=== PATIENT | male | born 1985 | race Two or more races ===

== ENCOUNTER 2022-07-14 07:52 | Emergency (ER) | payer MEDICAID ==
[~2022-07-14] VITALS: Ht 182.9 cm; Wt 74.8 kg
--- NOTE | 2022-07-14 08:05 | NUR ---
BIB RA 81 FORM HOME,ETOH, STRONG ETOH BREATH
[2022-07-14] MEDS ORDERED: MULTIVITAMINS,THERAGRAN 1 UDTAB TABLET ONE (08:19)
[2022-07-14] MEDS ORDERED: THIAMINE HCL 100 MG TABLET ONE (08:19)
[2022-07-14] MEDS ORDERED: IV NS 0.9% 1,000 ML BAG IV ONE (08:30)
--- NOTE | 2022-07-14 08:35 | NUR ---
IV LINE ESTABLISHED ON LAC #20, BLOOD DRAWN AND COLLECTED BY PHLEB. PT REFUSED THIAMINE AND THERAGRAN MEDICATIONS, STATED THAT "I DON'T TRUST WHAT YOU'RE GIVING ME". EXPLAINED TO PT THAT MEDICATIONS ARE SUPPLEMENTAL VITAMINS; RISKS AND BENEFITS EXPLAINED BUT PT STILL REFUSED. PT ALERT AND ORIENTED AND INSISTS ON REFUSING TO TAKE MEDICATIONS BUT IS OK WITH IVF.
[2022-07-14] MEDS: MULTIVITAMINS,THERAGRAN 1 UDTAB TABLET PO SCH ×2 (08:40→08:44)
[2022-07-14] MEDS: THIAMINE HCL 100 MG TABLET PO ONE ×2 (08:40→08:44)
[2022-07-14 08:49] LABS: BASOPHILS % (AUTO) 0.3 % (0.0-2.0); EOSINOPHILS % (AUTO) 0.3 % (0.0-6.0); HEMATOCRIT 51 % (39-51); HEMOGLOBIN 17.2 g/dL (13.5-17.5); LYMPHOCYTES # (AUTO) 2.1 K/uL (0.8-4.8); LYMPHOCYTES % (AUTO) 27.5 % (20.0-44.0); MEAN CORPUSCULAR HGB CONC 34 g/dl (31.0-36.0); MEAN CORPUSCULAR VOLUME 91 fL (80-96); MONOCYTES # (AUTO) 0.4 K/uL (0.1-1.30); MONOCYTES % (AUTO) 4.6 % (2.0-12.0); NEUTROPHILS # (AUTO) 5.2 K/uL (1.8-8.9); NEUTROPHILS % (AUTO) 67.3 % (43.0-81.0); PLATELET COUNT (AUTO) 72 K/uL (150-450); RED BLOOD CELL COUNT(AUTO) 5.65 MIL/uL (4.5-6.0); WHITE BLOOD COUNT (AUTO) 7.8 K/uL (4.3-11.0)
[2022-07-14 08:59] LABS: CALCIUM, SERUM 7.6 mg/dL (8.5-10.1); CARBON DIOXIDE 22 mmol/L (21-32); CHLORIDE 98 mmol/L (98-107); CREATININE 0.9 mg/dL (0.6-1.3); GLUCOSE 86 mg/dL (74-106); POTASSIUM 3.5 mmol/L (3.5-5.1); SODIUM SERUM 139 mmol/L (136-145); UREA NITROGEN, BLOOD 10 mg/dL (7-18)
[2022-07-14 09:05] LABS: ALANINE AMINOTRANSFERASE 239 U/L (12-78); ALBUMIN 3.7 g/dL (3.4-5.0); ALCOHOL, BLOOD 448 mg/dL (0-0); ALKALINE PHOSPHATASE 103 U/L (46-116); ASPARTATE AMINOTRANSFERASE 430 U/L (15-37); BILIRUBIN,DIRECT 0.4 mg/dL (0.0-0.2); BILIRUBIN,TOTAL 0.9 mg/dL (0.2-1.0); TOTAL PROTEIN, SERUM 7.8 g/dL (6.4-8.2)
[2022-07-14 09:15] LABS: ACETAMINOPHEN < 10 ug/ml (10-30)
--- NOTE | 2022-07-14 11:45 | NUR ---
IV removed. Catheter intact and site benign. Pressure and 4x4 applied to site. No bleeding noted.
--- NOTE | 2022-07-14 12:22 | NUR ---
Patient discharged to home in stable condition. Written and verbal after care instructions given. Patient verbalizes understanding of instruction.
[2022-07-14 12:23] VITALS: BP 135/81
[2022-07-15 03:39] LABS: LYMPHOCYTES % (MANUAL) 30 % (16-48); MONOCYTES % (MANUAL) 7 % (0-11.0); NEUTROPHILS % (MANUAL) 63 (42-76)
[2022-07-17] MEDS ORDERED: CHLO25CA22 PO ×3 (16:42)
== END 2022-07-14 12:23 | disposition home or self-care (01) ==
LOC: ER 07:57
DX: F10.229 Alcohol dependence with intoxication, unspecified (principal); Y90.8 Blood alcohol level of 240 mg/100 ml or more
CPT/HCPCS: 99283; 96360; 85025; 80048; 80076; 85007; 36415; 80143; 80320; J7030; G0480

== ENCOUNTER 2022-07-14 20:42 | Emergency (ER) | payer MEDICAID ==
[~2022-07-14] VITALS: Ht 182.9 cm; Wt 72.6 kg
[2022-07-14 22:32] VITALS: BP 125/64
[2022-07-17] MEDS ORDERED: CHLO25CA22 PO ×3 (16:42)
== END 2022-07-15 03:37 | disposition home or self-care (01) ==
LOC: ER 20:43
DX: F10.129 Alcohol abuse with intoxication, unspecified (principal); F17.200 Nicotine dependence, unspecified, uncomplicated; Z60.2 Problems related to living alone; Y90.9 Presence of alcohol in blood, level not specified
CPT/HCPCS: 82962-TC

== ENCOUNTER 2022-07-15 04:45 | Inpatient (IN) | payer MEDICAID ==
[~2022-07-15] VITALS: Ht 182.9 cm; Wt 81.6 kg
[2022-07-15] MEDS ORDERED: ONDANSETRON HCL/PF 4 MG/2 ML VIAL ONE (05:47)
[2022-07-15] MEDS ORDERED: LORAZEPAM INJ 2 MG/ML VIAL ONE ×4 (05:47→11:28)
[2022-07-15] MEDS ORDERED: ONDANSETRON HCL/PF 4 MG/2 ML VIAL IVP ONE (06:00)
[2022-07-15] MEDS ORDERED: IV NS 0.9% 1,000 ML BAG IV ONE (06:00)
[2022-07-15] MEDS ORDERED: LORAZEPAM INJ 2 MG/ML VIAL IV ONE ×4 (06:00→11:30)
--- NOTE | 2022-07-15 06:00 | NUR ---
TO ER BED 4. [id number]. FOR ALCHOHOL WITHDRAWAL . PT IS ALERT AND ORIENTED. RR EVEN AND NON LABORED. CONNECTED TO POX AND HEART MONITOR. SEIZURE PRECAUTIONS INPLACE.
--- NOTE | 2022-07-15 06:05 | NUR ---
IV LINE ESTABLISHED, [id number]
--- NOTE | 2022-07-15 06:06 | NUR ---
BLOOD COLLECTED AND SENT TO LAB
[2022-07-15 06:41] LABS: BASOPHILS % (AUTO) 0.2 % (0.0-2.0); EOSINOPHILS % (AUTO) 0.2 % (0.0-6.0); HEMATOCRIT 47 % (39-51); HEMOGLOBIN 16.1 g/dL (13.5-17.5); LYMPHOCYTES # (AUTO) 0.8 K/uL (0.8-4.8); LYMPHOCYTES % (AUTO) 7.7 % (20.0-44.0); MEAN CORPUSCULAR HGB CONC 34 g/dl (31.0-36.0); MEAN CORPUSCULAR VOLUME 90 fL (80-96); MONOCYTES # (AUTO) 0.6 K/uL (0.1-1.30); MONOCYTES % (AUTO) 5.7 % (2.0-12.0); NEUTROPHILS # (AUTO) 8.8 K/uL (1.8-8.9); NEUTROPHILS % (AUTO) 86.2 % (43.0-81.0); PLATELET COUNT (AUTO) 59 K/uL (150-450); RED BLOOD CELL COUNT(AUTO) 5.25 MIL/uL (4.5-6.0); WHITE BLOOD COUNT (AUTO) 10.2 K/uL (4.3-11.0)
[2022-07-15 06:44] LABS: ALBUMIN 3.8 g/dL (3.4-5.0); BILIRUBIN,DIRECT 0.5 mg/dL (0.0-0.2); BILIRUBIN,TOTAL 1.3 mg/dL (0.2-1.0); CALCIUM, SERUM 8.4 mg/dL (8.5-10.1); CREATININE 0.7 mg/dL (0.6-1.3); POTASSIUM 3.3 mmol/L (3.5-5.1); TOTAL PROTEIN, SERUM 7.7 g/dL (6.4-8.2)
--- NOTE | 2022-07-15 08:20 | NUR ---
Pt updated with plan of care. Umm/danielle. Dr Bautista notified- additional orders
--- NOTE | 2022-07-15 08:29 | NUR ---
MOVE SHEET SUBMITTED.
[2022-07-15] MEDS ORDERED: IV LR 1000 ML 1,000 ML IV ONE ×2 (08:30→10:30)
--- NOTE | 2022-07-15 09:04 | NUR ---
Dozing, easily awakened. Appears more comfortable. Awaiting room assignment
--- NOTE | 2022-07-15 09:45 | NUR ---
[facility] [place] [phone]
[2022-07-15 10:03] LABS: LYMPHOCYTES % (MANUAL) 8 % (16-48); NEUTROPHILS % (MANUAL) 87 (42-76)
[2022-07-15 10:04] LABS: BASOPHILS % (MANUAL) 0 % (0.0-2.0); EOSINOPHILS % (MANUAL) 1 % (0-4); MONOCYTES % (MANUAL) 4 % (0-11.0)
--- NOTE | 2022-07-15 10:20 | NUR ---
Covid Swab done-sent to lab.
--- NOTE | 2022-07-15 11:33 | NUR ---
RECEIVED FULL REPORT FOR THE PATIENT FROM NURSE PRIETO RN BEING ADMITTED TO TELE UNIT.
--- NOTE | 2022-07-15 11:45 | NUR ---
Report given to ZANE Bee. Oxygen applied for comfort and to keep sats >94. Transfer to tele floor by ann. NO obvious distress/no acute changes
--- NOTE | 2022-07-15 11:51 | NUR ---
BED 116-2
--- NOTE | 2022-07-15 11:58 | NUR ---
TELE ADMISSION NOTES: RECEIVED A 37 YEAR OLD MALE FROM ED ACCOMPANIED BY TWO NURSES VIA GURNEY. PATIENT IS ALERT, ORIENTED X3. NO RESPIRATORY DISTRESS NOTED. ON RA WITH OXYGEN SATURATION OF 94%. PATIENT NOTED TO BE HAVING TREMORS AND ASSISTED TO BED. PATIENT WAS PLACED ON TELEMONITOR WITH HR OF 119 PER CODING COMPLIANCE AUDITOR. NO C/O CHEST PAIN OR DISCOMFORT AT THIS TIME. IV ACCESS ON LEFT ANTECUBITAL AREA, PATENT, FLUSHES WELL. ALL SAFETY MEASURES IN PLACE. BED LOCKED AND IN LOWEST POSITION WITH BED ALARM ON. CALL LIGHT PLACED WITHIN REACH AND INSTRUCTED PATIENT TO PLEASE CALL FOR ASSISTANCE WHEN NEEDED AND TO TRY NOT TO AMBULATE BY HIMSELF. PATIENT AGREED AND UNDERSTOOD. NO NAUSEA/VOMITING NOTED AT THIS TIME. BODY CHECK DONE AND BELONGINGS LIST WAS PLACED IN THE CHART. WILL CONTINUE TO MONITOR PATIENT THROUGHOUT SHIFT. V/S FOLLOWS: BP 145/85, RESPIRATION RATE 18, TEMP 99.6.
[2022-07-15 12:00] VITALS: BP 145/85
[2022-07-15] MEDS ORDERED: ZOLPIDEM TARTRATE 5 MG TABLET PO PRN (13:00)
[2022-07-15] MEDS ORDERED: ONDANSETRON HCL/PF 4 MG/2 ML VIAL IVP PRN (13:00)
[2022-07-15] MEDS ORDERED: Z GUARD REMEDY 4 OZ OINT TP PRN (13:00)
[2022-07-15] MEDS ORDERED: MAGNESIUM HYDROXIDE 30 ML UDC PO PRN (13:00)
[2022-07-15] MEDS ORDERED: MAG HYDROX/AL HYDROX/SIMETH 30 ML UDC PO PRN (13:00)
[2022-07-15] MEDS: FOLIC ACID 1 MG TABLET PO SCH (13:15)
[2022-07-15] MEDS: THIAMINE HCL 100 MG TABLET PO SCH (13:18)
[2022-07-15] MEDS: MULTIVITAMINS,THERAGRAN 1 UDTAB TABLET PO SCH (13:18)
[2022-07-15] MEDS: IV NS 0.9% 1,000 ML IV PRN (13:19)
[2022-07-15] MEDS ORDERED: POTASSIUM CHLORIDE 20 MEQ TAB.PRT.SR PO ONE (13:30)
[2022-07-15] MEDS: LORAZEPAM 1 MG TABLET PO PRN (15:41)
[2022-07-15] MEDS: ACETAMINOPHEN 325 MG TABLET PO PRN ×2 (15:41→15:48)
[2022-07-15 16:00] VITALS: BP 131/79
--- NOTE | 2022-07-15 18:33 | NUR ---
PATIENT NOTED TO VIOLETA NO URINE OUTOUT SINCE HE WAS ADMITTED ABOUT 6 HOURS AGO. NO ABDOMINAL DISTENTION NOTED, NO ABDOMIANL PAINUPON PALPATION. DR. MORELAND Addendum: 07/15/22 at 1902 by MARK DELGADO RN CORRECTION ON NOTE ABOVE. NO PAIN UPON PALPATION. DR. MORELAND NOTIFIED WITH AN ORDER FOR YOUNG CATHETER INSERTION. ORDER NOTED AND CARRIED OUT.
--- NOTE | 2022-07-15 18:45 | NUR ---
GATHERED SUPPLIES AND EXPLAINED THE PROCEDURE TO THE PATIENT BUT PATIENT DECLINED AT THIS TIME
[2022-07-15] MEDS: LORAZEPAM INJ 2 MG/ML VIAL IV PRN (18:55)
--- NOTE | 2022-07-15 18:55 | NUR ---
OFFERED TO HAVE HIS YOUNG CATHETER GIVEN TO HIM BUT PATIENT SAID THAT HE WANTS HIS ATIVAN FIRST TO CALM HIM DOWN BEFORE INSERTION. MED GIVEN TO THE PATIENT.
--- NOTE | 2022-07-15 19:03 | NUR ---
TELE CLOSING NOTES: PATIENT IN BED, WAKE, ALERT, ORIENTED X 4. NO PERIODS OF ANXIETY NOTED AT THIS TIME BUT WOULD STILL WANT TO WAIT A LITTLE BIT FOR F/C INSERTION. NO RESPIRATORY DISTRESS NOTED THROUGHOUT SHIFT. ON SR WITH HR OF 96 ON TELE MONITOR. PATIENT STILL NOTED WITH MILD TREMORS. IV ACCESS ON LEFT AC RUNNING WITH NS @ 75 ML/HR, IV SITE PATENT, NO S/S INFILTRATION NOTED. ALL SAFETY MEASURES IMPLEMENTED. BED LOCKED AND IN LOWEST POSITION. SR UP X 2. CALL LIGHT WITHIN REACH. WILL ENDORSE TO NEXT SHIFT NURSE FOR F/C INSERTION ORDERED BY .
--- NOTE | 2022-07-15 19:40 | NUR ---
INFORMATION SYSTEMS ARCHITECT OPENING NOTES: RECEIVED PATIENT AWAKE IN BED, BE DIN LOW POSITION CALL LIGHS WITHIN REACH, NO COMPLAIN OF PAIN AND DISCOMFORT AT THIS TIME, ON ROOM AIR SATURATING WELL, PATIENT ON TELE MONITOR- SR-87, NO SYMPTOMS WAS OBSERVED, IV LINE AT LAC#20 WITH ONGOING NSS@75 ML/HR INFUSING WELL, PATIENT KEPT CLEAN AND DRY ALL NEEDS MET WILL CONTINUE TO MONITOR.
[2022-07-15 20:00] VITALS: BP 112/79
--- NOTE | 2022-07-15 21:16 | NUR ---
RN NOTES: FOLYE CATHETER INSERTION NOT DONE, PATIENT URINATE 900CC VIA URINAL, DID BLADDER SCAN NO URINE RETENTION WILL CONTINUE TO MONITOR.
[2022-07-16] VITALS: BP 112/79
[2022-07-16] MEDS: IV NS 0.9% 1,000 ML IV PRN (02:12)
[2022-07-16 04:03] VITALS: BP 116/78
[2022-07-16] MEDS: LORAZEPAM INJ 2 MG/ML VIAL IV PRN ×2 (04:57→11:54)
[2022-07-16 06:11] LABS: BASOPHILS % (AUTO) 0.2 % (0.0-2.0); HEMATOCRIT 41 % (39-51); HEMOGLOBIN 13.6 g/dL (13.5-17.5); LYMPHOCYTES # (AUTO) 1.2 K/uL (0.8-4.8); LYMPHOCYTES % (AUTO) 15.2 % (20.0-44.0); MEAN CORPUSCULAR HGB CONC 33 g/dl (31.0-36.0); MEAN CORPUSCULAR VOLUME 92 fL (80-96); MONOCYTES # (AUTO) 0.5 K/uL (0.1-1.30); MONOCYTES % (AUTO) 6.2 % (2.0-12.0); NEUTROPHILS % (AUTO) 77.4 % (43.0-81.0); RED BLOOD CELL COUNT(AUTO) 4.45 MIL/uL (4.5-6.0); WHITE BLOOD COUNT (AUTO) 7.7 K/uL (4.3-11.0)
[2022-07-16 06:20] LABS: PLATELET COUNT (AUTO) 41 K/uL (150-450)
--- NOTE | 2022-07-16 06:25 | NUR ---
RN NOTES: RECEIVED A CRITICAL LABS OF PLATELET AT 41, PREVIOUS WAS- 59 NO BLEEDING WAS OBSERVED, NOTIFY CARD CLOTHIER KARI- NO NEW ORDER
--- NOTE | 2022-07-16 06:34 | NUR ---
DARIO RN CLOSING NOTES: PATIENT AWAKE IN BED, BED IN LOW POSITION CALL LIGHTS WITHIN REACH, NO COMPLAIN OF PAIN AND DISCOMFORT AT THIS TIE, ON ROOM AIR SATURATING WELL, ON TELE MONITOR- SR-83, IV LINE AT LAC#20 WITH ONGONG 0.9NSS@75ML/HR INFUSING WELL, PATIENT IS A/OX4 ABLE TO MAKE NEEDS KNWON, NO BLEEDING WAS OBSERVED , KEPT CLEAN AND DRY ALL NEEDS MET ENDORSE TO INCOMING SHIFT.
[2022-07-16 06:55] LABS: CREATININE 0.8 mg/dL (0.6-1.3); MAGNESIUM 1.4 mg/dL (1.8-2.4); PHOSPHORUS 1.6 mg/dL (2.5-4.9); POTASSIUM 3.2 mmol/L (3.5-5.1)
--- NOTE | 2022-07-16 07:30 | NUR ---
RN Opening Note Patient AOx4 able to express his concerns. Patient states no complaints, no issues, no signs of respiratory distress or discomfort. All safety precautions taken, oriented pt to unit and the use of the call light. Discussed plan of care, pt verbalized agreement. All safety precautions taken, call light and table within reach, bed at lowest position.
[2022-07-16 08:00] VITALS: BP 95/52
[2022-07-16] MEDS: PANTOPRAZOLE 40 MG TABLET.DR PO SCH (08:02)
[2022-07-16] MEDS: LORAZEPAM 1 MG TABLET PO PRN (08:02)
[2022-07-16] MEDS: THIAMINE HCL 100 MG TABLET PO SCH (08:05)
[2022-07-16] MEDS: MULTIVITAMINS,THERAGRAN 1 UDTAB TABLET PO SCH (08:05)
[2022-07-16] MEDS: FOLIC ACID 1 MG TABLET PO SCH (08:05)
[2022-07-16] MEDS: NICOTINE PATCH (14MG) 14 MG PATCH.TD24 TD SCH (08:05)
[2022-07-16] MEDS ORDERED: MAGNESIUM OXIDE 400 MG TABLET PO ONE (09:00)
[2022-07-16] MEDS: POTASSIUM CHLORIDE 20 MEQ TAB.PRT.SR PO SCH ×2 (09:50→11:07)
[2022-07-16 10:45] LABS: BASOPHILS % (MANUAL) 0 % (0.0-2.0); EOSINOPHILS % (MANUAL) 1 % (0-4); LYMPHOCYTES % (MANUAL) 12 % (16-48); MONOCYTES % (MANUAL) 7 % (0-11.0); NEUTROPHILS % (MANUAL) 80 (42-76)
[2022-07-16 12:00] VITALS: BP 129/78
[2022-07-16] MEDS ORDERED: K PHOS NEUTRAL 250 MG TABLET PO ONE (12:00)
[2022-07-16] MEDS: CHLORDIAZEPOXIDE HCL 25 MG CAPSULE PO SCH ×4 (12:35→17:13)
--- NOTE | 2022-07-16 13:05 | NUR ---
Refused Librium PAtient refused Librium, goggled information and states he does not want to take it. States he is skeptical about medications and does not want to take it, does not feel he needs it. Educated pt, spent over 10 minutes, pt cont to refuse.
[2022-07-16] MEDS ORDERED: LORAZEPAM INJ 2 MG/ML VIAL IV STA (13:54)
--- NOTE | 2022-07-16 13:56 | NUR ---
television news producer note noted on tele monitor st 145-160 per Fabien balbuena give Ativan 1 mg ivp now , order carried out
[2022-07-16 16:00] VITALS: BP 116/78
--- NOTE | 2022-07-16 18:20 | NUR ---
RN Closing Note Patient AOx4 able to express his own concerns. No signs of respiratory distress or discomfort, no signs of IV infiltration. Patient has been sleeping through out shift, no incidents. Provided care as needed and administered medications as prescribed. Patient remained safe throughout shift, no incidents to report. All safety precautions taken All safety precautions taken, call light and table within reach, bed at lowest position.
--- NOTE | 2022-07-16 19:20 | NUR ---
HYDRAULIC RIVETER OPENING NOTES: RECEIVED PATIENT IN BED, SLEEPING. EASILY BEING AROUSED. PATIENT IS ON RA, TOLERATED WELL; NO S/S OF SOB OR DISTRESS. IV ACCESS IS AT HIS L AC, RUNNING NS @100 ML / HOUR. IV SITE IS PATENT AND INTACT. PATIENT IS ON EXTERNAL LOG INSPECTOR, ON THE MONITOR, HIS HEART RHYTHM IS ST BETWEEN 100S TO 130S. SAFETY MEASURES ARE IN PLACE: BED IN LOWEST AND LOCKED POSITION; SIDE RAILS UP X 2 ; CALL LIGHT AND TABLE ARE WITHIN REACH. WILL CONTINUE MONITOR THE PATIENT AND PROVIDE THE CARE PATIENT NEEDS.
[2022-07-16 20:00] VITALS: BP 126/71
[2022-07-17] VITALS: BP 127/84
[2022-07-17] MEDS: LORAZEPAM INJ 2 MG/ML VIAL IV PRN ×3 (03:44→11:01)
[2022-07-17] MEDS: IV NS 0.9% 1,000 ML IV PRN (03:48)
--- NOTE | 2022-07-17 03:50 | NUR ---
MIXED CROP AND LIVESTOCK FARM WORKER NOTE PATIENT WOKE UP AND HIS HEART RATE REACHES 140S. ACCESSED THE PATIENT, PATIENT STATED HE WAS FEELING ANXIOUS, AND NEED THE ATIVAN. PRN MEDICATION ATIVAN GIVEN PER MD ORDER.
[2022-07-17 04:00] VITALS: BP 131/89
[2022-07-17 06:22] LABS: BASOPHILS % (AUTO) 0.3 % (0.0-2.0); EOSINOPHILS % (AUTO) 1.1 % (0.0-6.0); HEMATOCRIT 45 % (39-51); HEMOGLOBIN 15.3 g/dL (13.5-17.5); LYMPHOCYTES # (AUTO) 1.3 K/uL (0.8-4.8); LYMPHOCYTES % (AUTO) 13.8 % (20.0-44.0); MEAN CORPUSCULAR HGB CONC 34 g/dl (31.0-36.0); MEAN CORPUSCULAR VOLUME 91 fL (80-96); MONOCYTES # (AUTO) 0.5 K/uL (0.1-1.30); MONOCYTES % (AUTO) 5.1 % (2.0-12.0); NEUTROPHILS # (AUTO) 7.7 K/uL (1.8-8.9); NEUTROPHILS % (AUTO) 79.7 % (43.0-81.0); RED BLOOD CELL COUNT(AUTO) 4.97 MIL/uL (4.5-6.0); WHITE BLOOD COUNT (AUTO) 9.6 K/uL (4.3-11.0)
[2022-07-17 06:30] LABS: PLATELET COUNT (AUTO) 44 K/uL (150-450)
--- NOTE | 2022-07-17 06:30 | NUR ---
APPLICATION TECHNICIAN CRITICAL LAB CALL NOTE RECEIVED PHONE CALL FROM THE LAB AND BEING [id number] PATIENT'S PLT IS 44 FOR TODAY'S AM LAB DRAW. YESTERDAY, IT WAS 41. PATIENT'S PLT LAB VALUE IS TRENDING UP TOWARDS TO THE RIGHT DIRECTION. NO NEED TO CALL THE MD. CHARGE NURSE, ELLEN, NOTIFIED.
[2022-07-17 06:43] LABS: ALBUMIN 2.9 g/dL (3.4-5.0); BILIRUBIN,DIRECT 0.4 mg/dL (0.0-0.2); BILIRUBIN,TOTAL 1.3 mg/dL (0.2-1.0); CALCIUM, SERUM 8.3 mg/dL (8.5-10.1); CREATININE 0.7 mg/dL (0.6-1.3); MAGNESIUM 1.5 mg/dL (1.8-2.4); PHOSPHORUS 2.3 mg/dL (2.5-4.9); POTASSIUM 3.2 mmol/L (3.5-5.1); TOTAL PROTEIN, SERUM 6.7 g/dL (6.4-8.2)
[2022-07-17] MEDS: PANTOPRAZOLE 40 MG TABLET.DR PO SCH (07:30)
--- NOTE | 2022-07-17 07:30 | NUR ---
RN Opening Note Patient AOx4 able to express his concerns. Patient states he is comfortable, no complains. No signs of distress or discomfort, IV with no signs of infiltration. Patient educated on importance of using relaxation techniques to help bring his heart rate down. Patient states he is stressed since his mother is driving to see him from [place]. All safety precautions taken, call light and table within reach, bed at lowest position. Will continue to monitor throughout shift.
--- NOTE | 2022-07-17 07:39 | NUR ---
DIGITAL TRAFFIC COORDINATOR CLOSING NOTES: PATIENT IS IN BED, SLEEPING. EASILY BEING AROUSED. PATIENT IS ON RA, TOLERATED WELL; NO S/S OF SOB OR DISTRESS. IV ACCESS IS AT HIS L AC, RUNNING NS @100 ML / HOUR. IV SITE IS PATENT AND INTACT. PATIENT IS ON EXTERNAL CONSULTING IT ARCHITECT, ON THE MONITOR, HIS HEART RHYTHM IS ST BETWEEN 100S TO 130S. SAFETY MEASURES ARE IN PLACE: BED IN LOWEST AND LOCKED POSITION; SIDE RAILS UP X 2 ; CALL LIGHT AND TABLE ARE WITHIN REACH. WILL ENDORSE NEXT SHIFT NURSE FOR CONTINUING PATIENT CARE.
[2022-07-17 08:00] VITALS: BP 138/100
[2022-07-17] MEDS: NICOTINE PATCH (14MG) 14 MG PATCH.TD24 TD SCH (09:14)
[2022-07-17] MEDS: CHLORDIAZEPOXIDE HCL 25 MG CAPSULE PO SCH ×3 (09:15→16:58)
[2022-07-17] MEDS: MULTIVITAMINS,THERAGRAN 1 UDTAB TABLET PO SCH (09:15)
[2022-07-17] MEDS: THIAMINE HCL 100 MG TABLET PO SCH (09:15)
[2022-07-17] MEDS: FOLIC ACID 1 MG TABLET PO SCH (09:15)
[2022-07-17] MEDS ORDERED: POTASSIUM CHLORIDE 20 MEQ TAB.PRT.SR PO ONE (11:00)
[2022-07-17 12:00] VITALS: BP 137/88
[2022-07-17] MEDS ORDERED: K PHOS NEUTRAL 250 MG TABLET PO ONE (12:00)
[2022-07-17] MEDS: Magnesium 1GM/D5W 100ML PREMIX 100 ML IV SCH ×2 (12:42→13:45)
[2022-07-17 16:00] VITALS: BP 122/74
[2022-07-17] MEDS ORDERED: CHLO25CA22 PO ×3 (16:42)
--- NOTE | 2022-07-17 19:13 | NUR ---
RN Closing Note Patient AOx4 able to express his concerns. No signs of distress or discomfort. Administed medication as ordered and provided care as needed. All safety precautions taken, call light and table within reach. Will endorse to night nurse for continuity of care.
--- NOTE | 2022-07-17 19:30 | NUR ---
DEHYDROGENATION SUPERVISOR OPENING NOTE RECEIVED PT AWAKE IN BED. A/O X4 AND ABLE TO MAKE NEEDS KNOWN. PT STABLE ON ROOM AIR. NO SOB OR S/S OF RESPIRATORY DISTRESS. BREATHING EVEN AND UNLABORED. ON EXTERNAL CHANGE ATTENDANT READING ST 122BPM. IV ACCESS L HAND 20G, INTACT AND PATENT, RUNNING NS @ 100 ML/HR. SAFETY PRECAUTIONS IN PLACE. BED IN LOWEST LOCKED POSITION, HOB ELEVATED, SIDE RAILS UP X3, AND CALL LIGHT AND TABLE WITHIN REACH. ALL NEEDS MET AT THIS TIME.
[2022-07-17 20:00] VITALS: BP 119/87
[2022-07-17 20:11] LABS: EOSINOPHILS % (MANUAL) 2 % (0-4); LYMPHOCYTES % (MANUAL) 14 % (16-48); MONOCYTES % (MANUAL) 5 % (0-11.0); NEUTROPHILS % (MANUAL) 79 (42-76)
[2022-07-18] VITALS: BP 117/80
[2022-07-18] MEDS: LORAZEPAM INJ 2 MG/ML VIAL IV PRN ×5 (02:26→19:08)
--- NOTE | 2022-07-18 02:32 | NUR ---
RN NOTE PT REQUESTED ATIVAN FOR ANXIETY. ADMINISTERED ATIVAN 1 MG IV FOR ANXIETY ORDERED. WASTED REMAINING MEDICATION WITH DAISY DEGROOT. MADE COMFORTABLE IN BED. ALL NEEDS MET AT THIS TIME.
[2022-07-18 04:00] VITALS: BP 119/78
[2022-07-18] MEDS: IV NS 0.9% 1,000 ML IV PRN ×2 (04:41→15:12)
--- NOTE | 2022-07-18 06:41 | NUR ---
CIVIL ENGINEERING ASSISTANT CLOSING NOTE PT AWAKE IN BED. A/O X4 AND ABLE TO MAKE NEEDS KNOWN. PT STABLE ON ROOM AIR. NO SOB OR S/S OF RESPIRATORY DISTRESS. BREATHING EVEN AND UNLABORED. ON EXTERNAL RESERVATIONS AND TICKETING AGENT READING ST 115 BPM. IV ACCESS L HAND 20G, INTACT AND PATENT, RUNNING NS @ 100 ML/HR. ALL DUE MEDS GIVEN ORDERED. SAFETY PRECAUTIONS IN PLACE AT ALL TIMES. BED IN LOWEST LOCKED POSITION, HOB ELEVATED, SIDE RAILS UP X3, AND CALL LIGHT AND TABLE WITHIN REACH. ALL NEEDS MET AT THIS TIME AND WILL ENDORSE TO ONCOMING NURSE FOR JEET.
[2022-07-18 06:53] LABS: BASOPHILS % (AUTO) 0.3 % (0.0-2.0); EOSINOPHILS % (AUTO) 1.2 % (0.0-6.0); HEMATOCRIT 45 % (39-51); HEMOGLOBIN 15.3 g/dL (13.5-17.5); LYMPHOCYTES # (AUTO) 1.3 K/uL (0.8-4.8); MEAN CORPUSCULAR HGB CONC 34 g/dl (31.0-36.0); MEAN CORPUSCULAR VOLUME 92 fL (80-96); MONOCYTES # (AUTO) 0.7 K/uL (0.1-1.30); MONOCYTES % (AUTO) 6.5 % (2.0-12.0); NEUTROPHILS # (AUTO) 8.1 K/uL (1.8-8.9); PLATELET COUNT (AUTO) 65 K/uL (150-450); RED BLOOD CELL COUNT(AUTO) 4.89 MIL/uL (4.5-6.0); WHITE BLOOD COUNT (AUTO) 10.2 K/uL (4.3-11.0)
[2022-07-18 07:08] LABS: CALCIUM, SERUM 8.4 mg/dL (8.5-10.1); CREATININE 0.7 mg/dL (0.6-1.3); PHOSPHORUS 3.1 mg/dL (2.5-4.9); POTASSIUM 3.3 mmol/L (3.5-5.1)
[2022-07-18] MEDS: PANTOPRAZOLE 40 MG TABLET.DR PO SCH (07:27)
[2022-07-18] MEDS ORDERED: POTASSIUM CHLORIDE 20 MEQ TAB.PRT.SR PO ONE ×2 (08:00→11:00)
[2022-07-18 08:10] VITALS: BP 138/95
[2022-07-18] MEDS: CHLORDIAZEPOXIDE HCL 25 MG CAPSULE PO SCH ×3 (08:15→16:04)
[2022-07-18] MEDS: MULTIVITAMINS,THERAGRAN 1 UDTAB TABLET PO SCH (08:15)
[2022-07-18] MEDS: THIAMINE HCL 100 MG TABLET PO SCH (08:15)
[2022-07-18] MEDS: FOLIC ACID 1 MG TABLET PO SCH (08:15)
[2022-07-18] MEDS: NICOTINE PATCH (14MG) 14 MG PATCH.TD24 TD SCH (08:28)
[2022-07-18 11:52] LABS: LYMPHOCYTES % (MANUAL) 18 % (16-48); MONOCYTES % (MANUAL) 9 % (0-11.0); NEUTROPHILS % (MANUAL) 73 (42-76)
[2022-07-18 12:00] VITALS: BP 127/87
[2022-07-18 16:01] VITALS: BP 121/89
--- NOTE | 2022-07-18 18:32 | NUR ---
TRIPE COOKER CLOSING NOTES: PATIENT IS IN BED, ALERT ORIENTED TIMES 4 .PATIENT IS ON RA, TOLERATED WELL; NO S/S OF SOB OR DISTRESS. IV ACCESS IS AT HIS L AC, RUNNING NS @100 ML / HOUR. IV SITE IS PATENT AND INTACT. PATIENT IS ON EXTERNAL WATER POLLUTION SCIENTIST, ON THE MONITOR, HIS HEART RHYTHM IS ST BETWEEN 100S TO 147 .ALL MEDICATIONS WERE ADMINISTERED , ALL NEEDS WERE MET SAFETY MEASURES ARE IN PLACE: BED IN LOWEST AND LOCKED POSITION; SIDE RAILS UP X 2 ; CALL LIGHT AND TABLE ARE WITHIN REACH. WILL ENDORSE NEXT SHIFT NURSE TO FALLOW POC
--- NOTE | 2022-07-18 19:40 | NUR ---
NANNY BABYSITTER OPENING NOTE RECEIVED PATIENT IN BED, AWAKE. PT A/O X 4, ABLE TO MAKE NEEDS KNOWN. PATIENT IS ON RA, TOLERATED RA WELL; NO S/S OF SOB OR DISTRESS NOTED. IV ACCESS IS AT LEFT AC, RUNNING NS @100 ML / HOUR. IV SITE IS PATENT AND INTACT. PATIENT IS ON EXTERNAL HAT MENDER, WITH HR ST BETWEEN 100S TO 140S. SAFETY MEASURES ARE IN PLACE: BED IN LOWEST AND LOCKED POSITION; SIDE RAILS UP X 2 ; CALL LIGHT AND TABLE ARE WITHIN REACH. WILL CONTINUE TO MONITOR PATIENT.
[2022-07-18 20:00] VITALS: BP 127/86
[2022-07-19] VITALS: BP 111/78
[2022-07-19 04:00] VITALS: BP 111/78
[2022-07-19] MEDS: LORAZEPAM INJ 2 MG/ML VIAL IV PRN ×3 (05:28→13:50)
[2022-07-19 05:44] LABS: BASOPHILS % (AUTO) 0.5 % (0.0-2.0); HEMATOCRIT 47 % (39-51); HEMOGLOBIN 15.7 g/dL (13.5-17.5); LYMPHOCYTES # (AUTO) 1.6 K/uL (0.8-4.8); LYMPHOCYTES % (AUTO) 18.1 % (20.0-44.0); MEAN CORPUSCULAR HGB CONC 33 g/dl (31.0-36.0); MEAN CORPUSCULAR VOLUME 93 fL (80-96); MONOCYTES # (AUTO) 0.7 K/uL (0.1-1.30); MONOCYTES % (AUTO) 8.4 % (2.0-12.0); NEUTROPHILS # (AUTO) 6.2 K/uL (1.8-8.9); PLATELET COUNT (AUTO) 113 K/uL (150-450); RED BLOOD CELL COUNT(AUTO) 5.09 MIL/uL (4.5-6.0); WHITE BLOOD COUNT (AUTO) 8.8 K/uL (4.3-11.0)
[2022-07-19 05:48] LABS: CALCIUM, SERUM 9.1 mg/dL (8.5-10.1); CREATININE 0.8 mg/dL (0.6-1.3)
--- NOTE | 2022-07-19 07:00 | NUR ---
KNITTED GARMENT FINISHER CLOSING NOTE PATIENT IS IN BED, ALERT ORIENTED TIMES 4 .PATIENT IS ON RA, TOLERATED WELL; NO S/S OF SOB OR DISTRESS. IV ACCESS IS AT HIS L AC, RUNNING NS @100 ML / HOUR. IV SITE IS PATENT AND INTACT. PATIENT IS ON EXTERNAL PYROMETER TEMPERATURE REGULATOR, ON THE MONITOR, HIS HEART RHYTHM IS ST BETWEEN 100S TO 140 .ALL MEDICATIONS WERE ADMINISTERED. SAFETY MEASURES ARE IN PLACE: BED IN LOWEST AND LOCKED POSITION; SIDE RAILS UP X 2 ; CALL LIGHT AND TABLE ARE WITHIN REACH. WILL ENDORSE TO NEXT SHIFT NURSE FOR JEET.
--- NOTE | 2022-07-19 07:33 | NUR ---
CONDITIONER TUMBLER OPENING NOTE RECEIVED PATIENT IN BED, AWAKE. PT A/O X 4, ABLE TO MAKE NEEDS KNOWN. PATIENT IS ON RA, TOLERATED RA WELL; NO S/S OF SOB OR DISTRESS NOTED. IV ACCESS IS AT LEFT AC, RUNNING NS @100 ML / HOUR. IV SITE IS PATENT AND INTACT. PATIENT IS ON EXTERNAL PRICING LEAD, WITH HR ST. SAFETY MEASURES ARE IN PLACE: BED IN LOWEST AND LOCKED POSITION; SIDE RAILS UP X 2 ; CALL LIGHT AND TABLE ARE WITHIN REACH.
[2022-07-19 08:00] VITALS: BP 129/97
[2022-07-19] MEDS: NICOTINE PATCH (14MG) 14 MG PATCH.TD24 TD SCH (08:04)
[2022-07-19] MEDS: CHLORDIAZEPOXIDE HCL 25 MG CAPSULE PO SCH ×3 (08:04→17:08)
[2022-07-19] MEDS: PANTOPRAZOLE 40 MG TABLET.DR PO SCH (08:04)
[2022-07-19] MEDS: MULTIVITAMINS,THERAGRAN 1 UDTAB TABLET PO SCH (08:04)
[2022-07-19] MEDS: THIAMINE HCL 100 MG TABLET PO SCH (08:05)
[2022-07-19] MEDS: FOLIC ACID 1 MG TABLET PO SCH (08:05)
[2022-07-19 12:00] VITALS: BP 128/89
[2022-07-19] MEDS: IV NS 0.9% 1,000 ML IV PRN (12:32)
[2022-07-19 16:00] VITALS: BP 127/87
--- NOTE | 2022-07-19 16:00 | NUR ---
SS CONSULT REQUESTED. SW will follow up at a later time.
[2022-07-19 17:45] LABS: EOSINOPHILS % (MANUAL) 3 % (0-4); LYMPHOCYTES % (MANUAL) 17 % (16-48); MONOCYTES % (MANUAL) 8 % (0-11.0); NEUTROPHILS % (MANUAL) 72 (42-76)
--- NOTE | 2022-07-19 18:42 | NUR ---
DOCUMENT CONTROL MANAGER CLOSING NOTE PATIENT IS IN BED, ALERT ORIENTED TIMES 4 .PATIENT IS ON RA, TOLERATED WELL; NO S/S OF SOB OR DISTRESS. IV ACCESS IS AT HIS L AC, RUNNING NS @100 ML / HOUR. IV SITE IS PATENT AND INTACT. PATIENT IS ON EXTERNAL BENZENE STILL UTILITY OPERATOR, ON THE MONITOR, HIS HEART RHYTHM IS ST BETWEEN 100S TO 140 .ALL MEDICATIONS WERE ADMINISTERED. SAFETY MEASURES ARE IN PLACE: BED IN LOWEST AND LOCKED POSITION; SIDE RAILS UP X 2 ; CALL LIGHT AND TABLE ARE WITHIN REACH. WILL ENDORSE TO NEXT SHIFT NURSE FOR JEET.
--- NOTE | 2022-07-19 19:30 | NUR ---
ASSEMBLER TUBING OPENING NOTE RECEIVED PATIENT IN BED, AWAKE A/O X 4, ABLE TO MAKE NEEDS KNOWN.ON RA ALEX WELL; NO SIGN SOB/DISTRESS NOTED,IV ACCESS ON LFA 22G WITH NS @100 ML / HOUR.NO COMPLAIN OF PAIN/DISCOMFORT AT THIS TIME,SAFETY MEASURES ARE IN PLACE: BED IN LOWEST AND LOCKED POSITION; SIDE RAILS UP X 2 ; CALL LIGHT WITHIN REACH,WILL CONTINUE TO MONITOR.
[2022-07-19 20:00] VITALS: BP 125/90
[2022-07-20] VITALS: BP 113/79
[2022-07-20 04:00] VITALS: BP 107/78
[2022-07-20] MEDS: IV NS 0.9% 1,000 ML IV PRN (05:00)
--- NOTE | 2022-07-20 06:18 | NUR ---
SHIM PLUG CUTTER CLOSING NOTE;116 PATIENT IN BED, AWAKE A/O X 4, ABLE TO MAKE NEEDS KNOWN.ON RA ALEX WELL; NO SIGN SOB/DISTRESS NOTED,IV ACCESS ON LFA 22G WITH NS @100 ML / HOUR.NO COMPLAIN OF PAIN/DISCOMFORT DURING SHIFT,DUE MEDS GIVEN ORDER,ALL NEEDS ATTENDED,SAFETY MEASURES ARE IN PLACE: BED IN LOWEST AND LOCKED POSITION; SIDE RAILS UP X 2 ; CALL LIGHT WITHIN REACH,WILL ENDORSED TO NEXT SHIFT.
--- NOTE | 2022-07-20 07:13 | NUR ---
PATIENT IS AWAKE, ALERT, ORIENTED X2, INTERMITTENT CONFUSE, NO SIGNS OF IN DISTRESS, SPO2 Addendum: 07/20/22 at 0717 by GRAND MAXIMILIANO DEGROOT PATIENT IS AWAKE, ALERT, ORIENTED X2, INTERMITTENT CONFUSE, NO SIGNS OF IN DISTRESS, SPO2 98% ON 2L 02 VIA N/C, BED IN LOW POSITION, CALL LIGHT WITHIN REACH Addendum: 07/20/22 at 0718 by GRAND MAXIMILIANO DEGROOT PATIENT IS AWAKE, ALERT, ORIENTED X3, NO SIGNS OF IN DISTRESS, SPO2 98% RA, BED IN LOW POSITION, CALL LIGHT WITHIN REACH
[2022-07-20] MEDS: CHLORDIAZEPOXIDE HCL 25 MG CAPSULE PO SCH ×3 (07:39→16:19)
[2022-07-20] MEDS: PANTOPRAZOLE 40 MG TABLET.DR PO SCH (07:39)
[2022-07-20] MEDS: MULTIVITAMINS,THERAGRAN 1 UDTAB TABLET PO SCH (07:39)
[2022-07-20] MEDS: FOLIC ACID 1 MG TABLET PO SCH (07:40)
[2022-07-20] MEDS: NICOTINE PATCH (14MG) 14 MG PATCH.TD24 TD SCH (07:41)
[2022-07-20] MEDS: THIAMINE HCL 100 MG TABLET PO SCH (07:41)
[2022-07-20 08:00] VITALS: BP 122/90
[2022-07-20] MEDS: LORAZEPAM INJ 2 MG/ML VIAL IV PRN ×2 (10:42→21:14)
[2022-07-20 12:10] VITALS: BP 104/72
--- NOTE | 2022-07-20 12:13 | NUR ---
SS Consult: SS Consult requested for alcohol rehab referrals. The pt. is a 37-year-old male pt. who was admitted to [facility] due to alcohol withdrawal per EMR. Upon SS consult, the pt. is Alert & Oriented x 4 and makes good eye contact. The pt. appears unkempt. Pt. has depressed mood & affect. Pt.s speech is clear and thought process is WNL. Pt. remained calm & cooperative throughout interview. Pt. denies SI/HI and states denies hallucinations. SW explored pt.s living situation. Per pt. he was [facility] [id number] [facility] [address] SW explored pt.s drug & ETOH use. Pt. states he SMOKES 1 PACK OF CIGARETTES DAILY and he drinks 1 bottle of vodka daily. SW offered pt. referral to rehab facility and pt. accepted resources. SW provided psychoeducation on alcohol dependence. Per pt. he has a Hx. of Generalized Anxiety disorder and is not on any medications for his mental health. The pt. stated he is ambulatory and independent with all his ADLs. Pt. states he does not receive any financial assistance. Plan: ASHKAN provided pt. with the following addiction resources and pt. accepted them. Per pt. is he stays in [place] he will use resources to seek out rehab treatment. Per pt. he cannot return to his former home as its being evicted. However, per pt. his mother, Ana Donaldson [phone] from [place] came to [place] and will possibly take him to [place] with her. Per pt., she will [facility] when ready for discharge. ADDICTION RESOURCES For Drugs and Alcohol [facility] sober living Referrals For Rehabilitation once sober Address:[address] [place] [address] [facility] [address] [place] [address] Detox/residential [facility] Substance Abuse Helpline ([facility]) Outpatient, residential treatment, recovery support for youth/adults [facility] www.actionfamilycounsBooking Angel.Youxinpai [facility] Teen programs for drug/alcohol education and support Gregorio Coe Icard. Program for adults, sliding scale provides support and education [employer] www.[employer].org [place]; Detox/residential treatment programs; transition to sober living [facility] www.cri-help.org [place]; Outpatient and residential treatment programs; transition to sober living [facility] TEL: [phone] [facility] [place]ardo; Outpatient education and supportive programs for teens and adults [facility] www.[facility].org [place]; Residential treatment and work program for females only [place] [facility]ula www.[facility].Onsite Care [place]: Outpatient/residential treatment program for teens and young adults [facility] www.[facility].org [place] Detox, inpatient, outpatient for adults and youth [facility], [facility]. [place]; Outpatient programs and referrals to community residential programs. Alcoholics Anonymous -SFV information and meeting and scheduleswww.aa-intergroup.org Lb-Wqyh-Fwafxut https://al-anon.org/ [place] support groups for family of alcoholics. Marijuana Anonymous www.madistrict6.org -SFV listing of meetings Narcotics Anonymous www.na.org SOBER LIVING RESOURCES [facility] www.soberhousing.net A non-profit agency that provides resources to recovery and sober living homes throughout [place], [place], [facility] Sober Living Homes: A Work in ProgressGeorge [facility] Jinn [place] [facility], [place] SobriGeorge Regional Hospital[facility]amon[facility]om[facility] Sober Living Homes: [facility] x [phone] My [facility] Beginning, NATA [facility] Sober Living Homes: [facility] Counsel[facility]--Outpatient [facility] [address] [place] [address] (Specializes in in-depth psychotherapy for emotional distress: anxiety, depression, interpersonal conflicts, life transitions, childhood abuse) [facility] [address] [place] [address] (Assist with solving problem marital difficulties, separation & divorce, aging parents, & grief, chronic & terminal illness) [facility] [address] [place] [address] (Deal with loss & grief, anxiety, marital difficulties) [facility] Health [facility] [address], [address] [place] [address] (Provide in-home mental services to people who are incapable of leaving their homes) [facility] Needs of the Elderly Senior Service/Resource Center [address] [place] [address] [facility] [address] [place] [address] Mental Health Services Hannah Quintero [address] [place] [address] Services: Outpatient therapy for children, teens, young adults, adults, older adults, and families; Psychiatric services, medication support Psychiatric Outpatient Services [facility] Partial Hospitalization and Intensive Outpatient Program ([facility] Care and [place] Only)[address] [facility]. [facility] [phone] [facility] Partial Hospitalization and Outpatient [id number] [facility]. [address] [place], [place] [phone] [facility] Mental Health [place] [address] [place], [place] [phone] [facility] [place]onte Ricardo Partial Hospitalization and Outpatient [id number] SHAYY [phone] Crisis and Hotline Telephone Numbers 24-Hour service unless stated [place] Crisis Hotlines: [facility] Mental Health/Crisis Line........775.963.1342 Suicide Prevention Center (24 Hours).......128.881.1673 Suicide Prevention Crisis Center.......[phone] (24 Hours) Assaults Against Women Hotline.........826.419.8149 (24 Hours -- [facility]) Women and Children Crisis Prison...........239.762.2759 (24 Hours) Child Abuse Hotline............350.796.2641 [facility] Rape Treatment Center (24 Hours)..........630.126.8868 Alcoholics Anonymous (24 Hours)..........[phone] Cocaine Anonymous (24 Hours)............308.888.6954 Narcotics Anonymous (24 Hours)..........[phone] [address] [facility] [address], [place] [address]
[2022-07-20 16:00] VITALS: BP 110/68
--- NOTE | 2022-07-20 18:12 | NUR ---
CLOSING NOTE PATIENT IS AWAKE,ALERT, ORIENTEDX3,MOTHER IS AT BEDSIDE, NO COMPLAINT OF PAIN, INTERMITTENT ANXIETY. ATIVAN 0.5MG IVP GIVENX1, LIBRIUM INCREASES DOSE PER MD, HEART RATE STILL SINUS TACHYCARDEIC, 110-140BPM, BLOOD PRESSURE IS NORMAL, UNLABORED BREATHING ON ROOM AIR, SPO2-98%, SIDE RAILS UP, CALL LIGHT WITHIN REACH.
--- NOTE | 2022-07-20 19:40 | NUR ---
RN OPENING NOTE RECEIVED PATIENT IN BED; AWAKE, ALERT AND ORIENTED X 4. ON ROOM AIR; TOLERATING WELL. ON TELE MONITORING WITH READING OF SINUS TACHYCARDIA HR-105 BPM. DENIES ANY PAIN OR DISCOMFORT AT THIS TIME. WITH IV ACCESS ON LEFT FA 20G; PATENT AND INTACT INFUSING WITH NS 1L RUNNING @ 100 ML/HR. ABLE TO MAKE NEEDS KNOWN. SAFETY MEASURES IMPLEMENTED: CALL LIGHT AND TABLE WITHIN REACH, SIDE RAILS UP X 2, BED IN LOWEST LOCKED POSITION. WILL CONTINUE TO MONITOR.
[2022-07-20 20:00] VITALS: BP 111/83
--- NOTE | 2022-07-20 22:30 | NUR ---
RN NOTE PATIENT REFUSED TO HOOK ON IV FLUIDS FOR THE NIGHT. PER PATIENT, "I DON'T NEED IT NO." CHARGE NURSE EVIE ACE.
[2022-07-21] VITALS: BP 104/65
[2022-07-21 04:25] VITALS: BP 95/49
[2022-07-21] MEDS: IV NS 0.9% 1,000 ML IV PRN (05:46)
--- NOTE | 2022-07-21 06:40 | NUR ---
RN CLOSING NOTE PATIENT IN BED; AWAKE, A/O X 4. STABLE ON ROOM AIR. ON TELE MONITORING WITH READING OF SINUS TACHYCARDIA HR-103 BPM. DENIES ANY PAIN OR DISCOMFORT AT THIS TIME. WITH IV ACCESS ON LEFT FA 20G; PATENT AND INTACT. PATIENT REFUSED TO BE HOOK BACK ON IV FLUIDS. SAFETY MEASURES MAINTAINED: CALL LIGHT AND TABLE WITHIN REACH, SIDE RAILS UP X 2, BED IN LOWEST LOCKED POSITION. ENDORSED TO MORNING SHIFT FOR JEET.
[2022-07-21 08:00] VITALS: BP 113/70
[2022-07-21] MEDS: PANTOPRAZOLE 40 MG TABLET.DR PO SCH (08:15)
[2022-07-21] MEDS: THIAMINE HCL 100 MG TABLET PO SCH (08:15)
[2022-07-21] MEDS: FOLIC ACID 1 MG TABLET PO SCH (08:15)
[2022-07-21] MEDS: NICOTINE PATCH (14MG) 14 MG PATCH.TD24 TD SCH (08:15)
[2022-07-21] MEDS: CHLORDIAZEPOXIDE HCL 25 MG CAPSULE PO SCH (08:16)
[2022-07-21] MEDS: MULTIVITAMINS,THERAGRAN 1 UDTAB TABLET PO SCH (08:16)
[2022-07-21] MEDS: LORAZEPAM INJ 2 MG/ML VIAL IV PRN (09:40)
[2022-07-21 10:49] VITALS: BP 110/60
--- NOTE | 2022-07-21 10:50 | NUR ---
patient seen and evaluated by dr. arrington,discharge instruction given, accompanied by mother.
== END 2022-07-21 11:20 | disposition home or self-care (01) | DRG 422 ==
LOC: ER 04:53 → TELE1 11:50
PROVIDERS: ADMIT Nurse Practitioner Acute Care; ATTEND Internal Medicine
DX: E86.0 Dehydration (principal); E87.20 Acidosis, unspecified; K70.9 Alcoholic liver disease, unspecified; F10.239 Alcohol dependence with withdrawal, unspecified; E87.6 Hypokalemia; Z20.822 Contact with and (suspected) exposure to COVID-19; Z59.00 Homelessness unspecified; Y90.8 Blood alcohol level of 240 mg/100 ml or more; F41.9 Anxiety disorder, unspecified; R25.1 Tremor, unspecified; F17.210 Nicotine dependence, cigarettes, uncomplicated
CPT/HCPCS: 36415; 80048-TC; 80076-TC; 82140-TC; 82150-TC; 82962-TC; 83690-TC; 83735-TC; 84100-TC; 85025-TC; 87081-TC; C9803; G0378; J2060; J2405; J3475; J7030; J7120